=== PATIENT | female | born 1980 | race Caucasian/White ===

== ENCOUNTER 2016-05-25 18:00 | Emergency (ER) | payer MEDICAID, OTHER ==
[~2016-05-25] VITALS: Ht 157.5 cm; Wt 77.1 kg
[2016-05-25 18:15] VITALS: BP 130/82
--- NOTE | 2016-05-25 18:30 | NUR ---
PT TAKEN TO BED 4.
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
--- NOTE | 2016-05-25 18:31 | NUR ---
DR. MONTELONGO EVALUATING PATIENT AT BEDSIDE.
[2016-05-25] MEDS ORDERED: METHOCARBAMOL 500 MG TAB PO SCH (18:35)
[2016-05-25] MEDS ORDERED: HYDROcodone/APAP 5/325 MG 1 TAB TAB PO ONE (18:35)
--- NOTE | 2016-05-25 18:57 | NUR ---
PATIENT IN X-RAY AT THIS TIME.
[2016-05-25 19:20] VITALS: BP 130/82
--- NOTE | 2016-05-25 19:20 | NUR ---
Patient discharged with v/s stable. Written and verbal after care instructions given and explained. Patient alert, oriented and verbalized understanding of instructions. Ambulatory with steady gait. All questions addressed prior to discharge. ID band removed. Patient advised to follow up with PMD. Rx of MOTRIN,ROBAXIN AND NORCO given. Patient educated on indication of medication including possible reaction and side effects. Opportunity to ask questions provided and answered.
== END 2016-05-25 19:20 | disposition home or self-care (01) ==
LOC: MED 18:00
DX: S39.012A Strain of muscle, fascia and tendon of lower back, initial encounter (principal); S50.02XA Contusion of left elbow, initial encounter; S60.012A Contusion of left thumb without damage to nail, initial encounter; V89.2XXA Person injured in unspecified motor-vehicle accident, traffic, initial encounter; Y93.89 Activity, other specified; Y92.89 Other specified places as the place of occurrence of the external cause; Y99.8 Other external cause status